=== PATIENT | male | born 1960 | race Caucasian/White ===

== ENCOUNTER 2017-01-27 14:52 | Emergency (ER) | payer BC ==
[2017-01-27 14:59] VITALS: BP 149/74
[2017-01-27] MEDS ORDERED: Tetracaine 0.5% OPTH.SOL 4 ML* 1 DROP BTL LEFT EYE ONE (15:14)
[2017-01-27] MEDS ORDERED: Fluorescein Sodium TOPICAL* 1 MG TEST OPHTHALMIC ONE (15:14)
[2017-01-27] MEDS ORDERED: BSS OPTH.SOL* BTL ONE (15:15)
[2017-01-27] MEDS ORDERED: Fluorescein Sodium TOPICAL* 1 MG TEST ONE (15:15)
[2017-01-27] MEDS ORDERED: Tetracaine 0.5% OPTH.SOL 4 ML* 1 DROP BTL ONE (15:15)
--- NOTE | 2017-01-27 18:59 | UC ---
[facility], scribed for Liya Brannon MD on 01/27/17 at 1528 . Eye Complaint HPI - HPI Summary HPI Summary: 56 y/o male presents to the Urgent Care with a complaint of acute, constant, moderate eye irritation with associated redness in the lower left corner of the left eye. Just 3 hours ago while at work, he walked through a kels[place] of saw dust and got some dust in his eye. His pain is aggravated by sunlight and blinking. 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 His last tetanus shot was roughly 1 year ago. - History of Current Complaint Chief Complaint: UCEye Stated Complaint: SAWDUST IN EYE Time Seen by Provider: 01/27/17 15:03 Hx Obtained From: Patient Onset/Duration: Sudden Onset, Lasting Hours, Still Present Timing: Constant Severity Initially: Moderate Severity Currently: Moderate Location of Injury: Conjunctiva, Other - left lower side of conjunctiva on left eye Character: Foreign Body Sensation Aggravating Factor(s): Other - unknown Alleviating Factor(s): Other Associated Signs And Symptoms: Negative: Negative - photophobia, pain when blinking Related History: Other - unknown - Risk Factors Penetrating Injury Risk Factor: Negative Globe Rupture Risk Factors: Negative - Allergies/Home Medications Allergies/Adverse Reactions: Allergies Allergy/AdvReac Type Severity Reaction Status Date / Time No Known Allergies Allergy Verified 02/09/14 18:14 PMH/Surg Hx/FS Hx/Imm Hx Endocrine History: Diabetes - Surgical History Surgical History: None - Family History Known Family History: Positive: Diabetes - Social History Occupation: Employed Full-time Lives: With Family Alcohol Use: None Substance Use Type: None Smoking Status (MU): Never Smoked Tobacco Review of Systems Constitutional: Negative Skin: Negative Eyes: Eye Redness, Photophobia, Other - pain at left eye ENT: Negative Respiratory: Negative Cardiovascular: Negative Gastrointestinal: Negative Genitourinary: Negative Motor: Negative Neurovascular: Negative Musculoskeletal: Negative Neurological: Negative Psychological: Negative All Other Systems Reviewed And Are Negative: Yes Physical Exam Triage Information Reviewed: Yes Appearance: Well-Nourished Vital Signs: Initial Vital Signs Temp 98.4 F 01/27/17 14:56 Pulse 87 01/27/17 14:56 Resp 18 01/27/17 14:56 BP 149/74 01/27/17 14:56 Pulse Ox 97 01/27/17 14:56 Vital Signs Reviewed: Yes Eye Exam: Other - It feels like he has a foreign body in his left eye. He has two 4mm abrasions to his left eye. Both eyes watery. Left eye + scleral injection. Mild lid swelling. No redness. ENT Exam: Normal ENT: Positive: Normal ENT inspection Neck exam: Normal Respiratory Exam: Normal, Other - no dyspnea, no tachypnea, normal respiratory rate Cardiovascular Exam: Normal Cardiovascular: Positive: RRR, Brisk Capillary Refill, Other: - good general skin color Abdominal Exam: Normal Bowel Sounds: Positive: Present Musculoskeletal Exam: Normal Musculoskeletal: Positive: Strength Intact Neurological Exam: Normal, Other - nonfocal, grossly intact Eye Complaint Course/Dx - Course Course Of Treatment: 56 y/o male presents with left eye pain with associated redness. His blood pressure reading was 149/74, indicating type mild-to- moderate 1 hypertension. Follow-up with your primary care provider within 4 weeks for blood pressure readings and further evaluation, or at least make sure to check your blood pressure when following up on your diabetes. The patient already has a referral to Dr. Garcia from his primary care provider and therefore does not currently require another referral. Additionally, blood sugar yesterday was in the 100s (mg/dl). Tetracaine 2 gtt to Left eye. Flourescein stain -> two corneal abrasions (at 1:00 and at 04:00), approx 4mm each, irregular shape. No ulcer. No embedded fb. Two small specs (c/w sawdust hx) removed via sterile q-tip, s/p eye flush. Lids flipped -one of the specs was located under upper lid. Tolerated well. Reviewed f/u instructions / coa. - Differential Dx/Diagnosis Provider Diagnoses: Left eye fb. Left eye corneal abrasion x 2 Discharge - Discharge Plan Condition: Stable Disposition: HOME Prescriptions: Ciprofloxacin 0.3% OPTH.FAVIO* [Cipro 0.3% Opth*] 2 drop LEFT EYE Q8H #1 btl Patient Education Materials: Corneal Abrasion (ED), Eye Foreign Body (ED) Referrals: Brenda Diaz MD [Primary Care Provider] - Iron Garcia MD [Medical Doctor] - Additional Instructions: Wear sunglasses until light no longer bothers your eye. Follow up primary care physician, per routine. Follow up eye doctor, as recommended by your primary care physician. Follow up sooner (ie: Monday) if not better by then. Return here if worse over the weekend. The documentation as recorded by the [facility] accurately reflects the service I personally performed and the decisions made by me, Liya Brannon MD.
== END 2017-01-27 15:38 | disposition home or self-care (01) ==
LOC: UCEAST 14:52
DX: T15.02XA Foreign body in cornea, left eye, initial encounter (principal); X58.XXXA Exposure to other specified factors, initial encounter; Y93.9 Activity, unspecified; Y92.89 Other specified places as the place of occurrence of the external cause; Y99.0 Civilian activity done for income or pay; E11.9 Type 2 diabetes mellitus without complications
CPT/HCPCS: 99212; A9270-GY; G0463

== ENCOUNTER 2018-02-24 15:10 | Emergency (ER) | payer BC ==
[2018-02-24 15:47] VITALS: BP 143/76
--- NOTE | 2018-02-24 16:14 | UC ---
Eye Complaint HPI - HPI Summary HPI Summary: 4 DAYS OF LEFT UPPER EYELID EDEMA AND DISCOMFORT. NO VISUAL DISTURBANCE. NO EYE DRAINAGE. NO REDNESS. NO PAIN WITH EOM. NO ALAS OR NAUSEA. NO FEVER OR URI SX. HAS BEEN USING WARM COMPRESSES WITHOUT MUCH RELIED. WAS WORKING IN A [place] ARE[place] RECENTLY. 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 Negative : Photophobia, Drainage (Clear), Vision Impairment Bilateral, Fever - Allergies/Home Medications Allergies/Adverse Reactions: Allergies Allergy/AdvReac Type Severity Reaction Status Date / Time No Known Allergies Allergy Verified 02/24/18 15:47 Home Medications: Home Medications Aspirin 81 mg PO 02/24/18 [History] Atorvastatin* [Lipitor 20 MG*] 20 mg PO 1700 02/24/18 [History Confirmed ] Losartan TAB* [Cozaar TAB*] 25 mg PO DAILY 02/24/18 [History Confirmed 02/24/18] Metoprolol Tartrate TAB* [Lopressor TAB*] 25 mg PO DAILY 02/24/18 [History Confirmed 02/24/18] Sitagliptin Phos/Metformin HCl [Janumet 50-1,000 mg Tablet] 1 tab PO DAILY 02/24 [History Confirmed 02/24/18] PMH/Surg Hx/FS Hx/Imm Hx Endocrine History: Diabetes - Surgical History Surgical History: Yes Surgery Procedure, Year, and Place: hernia x2 - Family History Known Family History: Positive: Diabetes Negative: Hypertension - Social History Alcohol Use: Rare Substance Use Type: None Smoking Status (MU): Former Smoker Review of Systems Constitutional: Negative Eyes: Other - LEFT UPPER EYELID SWELLING Respiratory: Negative Cardiovascular: Negative Gastrointestinal: Negative All Other Systems Reviewed And Are Negative: Yes Physical Exam Triage Information Reviewed: Yes Appearance: Well-Appearing, No Pain Distress, Well-Nourished Vital Signs: Initial Vital Signs Temp 98.3 F 02/24/18 15:42 Pulse 109 02/24/18 15:42 Resp 16 02/24/18 15:42 BP 143/76 02/24/18 15:42 Pulse Ox 95 02/24/18 15:42 Vital Signs Reviewed: Yes Eyes: Positive: Conjunctiva Clear, Other: - LEFT UPPER EYELID EDEMA AND ERYTHEMA. Negative: Discharge ENT: Positive: Hearing grossly normal Neck: Positive: Supple Respiratory: Positive: No respiratory distress, No accessory muscle use Cardiovascular: Positive: Pulses Normal Abdomen Description: Positive: Soft Musculoskeletal: Positive: No Edema Neurological: Positive: Alert Psychological: Positive: Age Appropriate Behavior Skin: Negative: rashes Eye Complaint Course/Dx - Differential Dx/Diagnosis Provider Diagnoses: BLEPHARITIS LEFT UPPER EYELID Discharge - Sign-Out/Discharge Documenting (check all that apply): Discharge/Admit/Transfer - Discharge Plan Condition: Stable Disposition: HOME Prescriptions: Erythromycin OPTH OINT* [Erythromycin 0.5% OPTH OINT*] 1 applic LEFT EYE QID #1 tube Patient Education Materials: Blepharitis (ED) Referrals: Brenda Diaz MD [Primary Care Provider] - If Needed Iron Garcia MD [Medical Doctor] - If Needed Additional Instructions: BLEPHARITIS What is blepharitis? Blepharitis is inflammation of the eyelids that causes redness and swelling of the lids. The symptoms might get better and then come back. But blepharitis rarely causes problems with your vision. Blepharitis is more common in people who have certain skin conditions, including : Rosacea - This causes redness and raised, red bumps on the cheeks, nose, chin, forehead, or eyelids. Seborrhea This causes redness, scaly patches, and itching, mostly on the scalp. Dandruff is a mild form of seborrhea. What are the symptoms of blepharitis? The symptoms include: Eyelids that are red, swollen, and itchy A gritty or burning feeling in the eyes Red eyes Crusty, matted eyelashes in the morning Flaking or scaling of the eyelid skin Is there a test for blepharitis? No. There is no test. But your doctor or nurse should be able to tell if you have it by learning about your symptoms and doing an exam. Is there anything I can do on my own to feel better? Yes. You can: Put warm, wet pressure on your eyes Wet a clean wash cloth with warm (not scalding hot) water and put it over your eyes. When the wash cloth cools, reheat it with warm water and put it back over your eyes. Repeat these steps for 5 minutes, 2 to 4 times a day. Gently rub your eyelids Do this right after putting warm, wet pressure on your eyes (see above). Use the washcloth or a clean fingertip to gently rub your eyelid in small circles. Wash your eyelids Use plain warm water or warm water with a drop of baby shampoo on a clean washcloth, gauze pad, or cotton swab. Gently clean any crusty material off the eyelashes and eyelids. Do not rub hard or you can cause more irritation. You can also use [id number] eyelid scrubs and pads. How is blepharitis treated? If the treatments you do on your own do not help, your doctor might prescribe: An antibiotic cream or ointment to put on your eyelids Antibiotic pills IF YOU ARE NOT IMPROVING FOLLOW-UP WITH AN POULTRY FIELD SERVICE TECHNICIAN. - Billing Disposition and Condition Condition: STABLE Disposition: Home
== END 2018-02-24 16:09 | disposition home or self-care (01) ==
LOC: UCEAST 15:10
DX: H01.004 Unspecified blepharitis left upper eyelid (principal); E11.9 Type 2 diabetes mellitus without complications; Z87.891 Personal history of nicotine dependence
CPT/HCPCS: 99212; G0463

== ENCOUNTER 2019-03-03 13:56 | Emergency (ER) | payer BC ==
[2019-03-03 14:09] VITALS: BP 138/82
[2019-03-03] MEDS ORDERED: Rabies Immune Globulin/PF 1ML* 1 ML/300 UNITS VIAL IM ONE (14:47)
[2019-03-03] MEDS ORDERED: Rabies VIRUS VACCINE (RabAvert)* 2.5 UNITS VIAL IM ONE (14:48)
--- NOTE | 2019-03-03 14:49 | UC ---
Bite Injury/Animal HPI - HPI Summary HPI Summary: 2 JANINA AGO PT SAW A BAT IN HIS TOOL BAG. PICKED IT UP BY THE WING AND TOSSED IT OUT. NO BITE. IS HERE FOR RABIES PEP. PT REPORTS HE IS UP TO DATE TETANUS. - History of Current Complaint Chief Complaint: UCBiteInjury Stated Complaint: BAT EXPOSURE Time Seen by Provider: 03/03/19 14:45 Hx Obtained From: Patient Severity Currently: None Pain Intensity: 0 Pain Scale Used: 0-10 Numeric Has Animal Been Immunized?: No Aggravating Factor(s): Nothing Alleviating Factor(s): Nothing Associated Signs And Symptoms: Positive: Negative - Allergies/Home Medications Allergies/Adverse Reactions: Allergies Allergy/AdvReac Type Severity Reaction Status Date / Time No Known Allergies Allergy Verified 03/03/19 14:03 Home Medications: Home Medications Dulaglutide [Trulicity] 1 applic SUBCUT WEEKLY 03/03/19 [History Confirmed 03/03] PMH/Surg Hx/FS Hx/Imm Hx Endocrine History: Diabetes - Surgical History Surgical History: Yes Surgery Procedure, Year, and Place: hernia x2 - Family History Known Family History: Positive: Diabetes Negative: Hypertension - Social History Alcohol Use: Rare Substance Use Type: None Smoking Status (MU): Former Smoker Review of Systems All Other Systems Reviewed And Are Negative: Yes Constitutional: Positive: Negative Skin: Positive: Negative Respiratory: Positive: Negative Cardiovascular: Positive: Negative Gastrointestinal: Positive: Negative Physical Exam Triage Information Reviewed: Yes Appearance: Well-Appearing, No Pain Distress, Well-Nourished Vital Signs: Initial Vital Signs Temp 97.9 F 03/03/19 14:05 Pulse 96 03/03/19 14:05 Resp 20 03/03/19 14:05 BP 138/82 03/03/19 14:05 Pulse Ox 96 03/03/19 14:05 Vital Signs Reviewed: Yes Eyes: Positive: Conjunctiva Clear ENT: Positive: Hearing grossly normal Neck: Positive: Supple Respiratory: Positive: No respiratory distress, No accessory muscle use Cardiovascular: Positive: Pulses Normal Abdomen Description: Positive: Soft Musculoskeletal: Positive: No Edema Neurological: Positive: Alert Psychological: Positive: Age Appropriate Behavior Skin: Negative: Rashes Bite Injury Course/Dx - Course Course Of Treatment: RIG AND 1ST DOSE OF RABIES VACCINE ADMINISTERED TODAY. PT WILL FOLLOW-UP FOR HIS NEXT VACCINE IN 3 DAYS. - Differential Dx/Diagnosis Provider Diagnosis: Rabies, need for prophylactic vaccination against Discharge - Sign-Out/Discharge Documenting (check all that apply): Patient Departure All imaging exams completed and their final reports reviewed: No Studies - Discharge Plan Condition: Stable Disposition: HOME Patient Education Materials: Rabies (ED), Rabies Vaccine (ED) Referrals: Brenda Diaz MD [Primary Care Provider] - If Needed Additional Instructions: Rabies Exposure You may have been exposed to the rabies virus. This is a serious problem. To prevent rabies, treatment must begin early. If we wait until you develop symptoms of rabies, it's too late. Rabies is a deadly infection. The rabies virus is found in an infected animal's saliva. After a bite, it grows in the muscle, then travels up the nerves into the brain. Using a series of shots, we can keep the virus from growing in your body. We clean the wound thoroughly. We usually inject rabies immune globulin ( antibodies against rabies) into the wound area. Another shot of immune globulin is given to treat the entire body. You'll need immunization against rabies. (If you're already immunized against rabies, you may need only a booster shot.) After the first shot, there are booster shots over the two weeks following exposure. These are usually done on day 3, 7, and 14. The repeat doses can also be given through the Health Department or by special arrangement with your doctor. The vaccine is 100% effective if started within 10 days, and also is highly effective if started beyond the 10 day recommendation. Because the incubation period for rabies is very long, up to one year, don't assume that you are safe if 10 days have already elapsed since your exposure. Bats are a special case, because they can carry rabies without becoming ill. Their mouths are so small that they can bite a sleeping person without the person being aware of the bite. That's why the health department may recommend rabies shots for a person who wakes up to discover a bat in the room. Ibuprofen or acetaminophen can be used for aching and swelling at the injection site. Call the doctor or return if you develop increasing pain, fever , chills, or spreading redness, or if you become short of breath or faint. - Billing Disposition and Condition Condition: STABLE Disposition: Home
== END 2019-03-03 15:20 | disposition home or self-care (01) ==
LOC: EDSEX 13:56 → UCEAST 13:56
DX: Z29.14 Encounter for prophylactic rabies immune globulin (principal); E11.9 Type 2 diabetes mellitus without complications
CPT/HCPCS: 90375; 90471; 90675; 96372; 99211; G0463

== ENCOUNTER 2019-03-06 14:22 | Emergency (ER) | payer BC ==
[2019-03-06 14:36] VITALS: BP 105/74
--- NOTE | 2019-03-06 14:47 | UC ---
General HPI - HPI Summary HPI Summary: PT presents for DAy #3 Rabies exposure. Exposed to bat - no bite no difficulty, pain or reaction to first vaccine pt without concerns meds reviewed - History of Current Complaint Chief Complaint: UCGeneralIllness Stated Complaint: RABIES Time Seen by Provider: 03/06/19 14:45 Hx Obtained From: Patient, Medical Records Pain Intensity: 0 - Allergy/Home Medications Allergies/Adverse Reactions: Allergies Allergy/AdvReac Type Severity Reaction Status Date / Time No Known Allergies Allergy Verified 03/06/19 14:36 PMH/Surg Hx/FS Hx/Imm Hx Previously Healthy: Yes - Surgical History Surgical History: Yes Surgery Procedure, Year, and Place: hernia x2 - Family History Known Family History: Positive: Diabetes Negative: Hypertension - Social History Occupation: Employed Full-time Lives: With Family Alcohol Use: Rare Substance Use Type: None Smoking Status (MU): Former Smoker Review of Systems All Other Systems Reviewed And Are Negative: Yes Constitutional: Positive: Negative Skin: Positive: Negative Eyes: Positive: Negative ENT: Positive: Negative Respiratory: Positive: Negative Cardiovascular: Positive: Negative Physical Exam - Summary Physical Exam Summary: Vital Signs Reviewed: Yes A+Ox3, no distress Eyes: Conjunctiva Clear ENT: Hearing grossly normal neck: supple Respiratory: Positive: No respiratory distress, No accessory muscle use Cardiovascular: skin color reflect adequate perfusion Musculoskeletal Exam: [place] x 4 without difficulty Neurological: Positive: Alert, ambulatory without difficulty Psychological: Positive: Normal Response To proivder Skin: Positive: no rash, no ecchymosis Triage Information Reviewed: Yes Vital Signs: Initial Vital Signs Temp 98.2 F 03/06/19 14:34 Pulse 103 03/06/19 14:34 Resp 18 03/06/19 14:34 BP 105/74 03/06/19 14:34 Pulse Ox 98 03/06/19 14:34 Course/Dx - Course Course Of Treatment: Pt here for rabies #2 vaccine no concerns or complications related to first okay for vaccine return on Monday - Diagnoses Provider Diagnosis: Rabies, need for prophylactic vaccination against Discharge - Sign-Out/Discharge Documenting (check all that apply): Patient Departure All imaging exams completed and their final reports reviewed: No Studies - Discharge Plan Condition: Stable Disposition: HOME Patient Education Materials: Rabies Vaccine (By injection) Referrals: Brenda Diaz MD [Primary Care Provider] - Additional Instructions: Return on Day #7 7/21/19 for your next vaccination Okay to take tylenol if discomfort at the site of injection - Billing Disposition and Condition Condition: STABLE Disposition: Home
[2019-03-06] MEDS ORDERED: Rabies VIRUS VACCINE (RabAvert)* 2.5 UNITS VIAL IM ONE (14:48)
== END 2019-03-06 15:00 | disposition home or self-care (01) ==
LOC: UCEAST 14:22
DX: Z29.14 Encounter for prophylactic rabies immune globulin (principal); Z87.891 Personal history of nicotine dependence
CPT/HCPCS: 90471; 90675; 99211; G0463

== ENCOUNTER 2019-03-10 07:25 | Emergency (ER) | payer BC ==
[2019-03-10] MEDS ORDERED: Rabies VIRUS VACCINE (RabAvert)* 2.5 UNITS VIAL IM ONE (07:31)
[2019-03-10 07:45] VITALS: BP 134/85
--- NOTE | 2019-03-10 07:50 | UC ---
General HPI - HPI Summary HPI Summary: Patient is here for the seventh day vaccine. Patient had no difficulties with the patient is vaccine. He has no other complaints. - History of Current Complaint Chief Complaint: UCBiteInjury Stated Complaint: RABIES Time Seen by Provider: 03/10/19 07:31 Hx Obtained From: Patient Pain Intensity: 0 - Allergy/Home Medications Allergies/Adverse Reactions: Allergies Allergy/AdvReac Type Severity Reaction Status Date / Time No Known Allergies Allergy Verified 03/10/19 07:45 PMH/Surg Hx/FS Hx/Imm Hx Previously Healthy: Yes - Surgical History Surgical History: Yes Surgery Procedure, Year, and Place: hernia x2 - Family History Known Family History: Positive: Diabetes Negative: Hypertension - Social History Alcohol Use: Rare Substance Use Type: None Smoking Status (MU): Former Smoker Review of Systems All Other Systems Reviewed And Are Negative: Yes Constitutional: Positive: Negative Skin: Positive: Negative Eyes: Positive: Negative ENT: Positive: Negative Respiratory: Positive: Negative Cardiovascular: Positive: Negative Gastrointestinal: Positive: Negative Genitourinary: Positive: Negative Motor: Positive: Negative Neurovascular: Positive: Negative Musculoskeletal: Positive: Negative Neurological: Positive: Negative Is Patient Immunocompromised?: No Physical Exam - Summary Physical Exam Summary: VITAL SIGNS: Reviewed. GENERAL: Patient is a well developed and nourished patient who is lying comfortably in the stretcher. Patient is not in any acute respiratory distress. HEAD AND FACE: No signs of trauma. No ecchymosis, hematomas or skull depressions. No sinus tenderness. EYES: PERRLA, EOMI x 2, No injected conjunctiva, no nystagmus. EARS: Hearing grossly intact. Ear canals and tympanic membranes are within normal limits. MOUTH: Oropharynx within normal limits. NECK: Supple, trachea is midline, no adenopathy, no JVD, no carotid bruit, no c- spine tenderness, neck with full ROM. CHEST: Symmetric, no tenderness at palpation LUNGS: Clear to auscultation bilaterally. No wheezing or crackles. CVS: Regular rate and rhythm, S1 and S2 present, no murmurs or gallops appreciated. ABDOMEN: Soft, non-tender. No signs of distention. No rebound no guarding, and no masses palpated. Bowel sounds are normal. EXTREMITIES: FROM in all major joints, no edema, no cyanosis or clubbing. NEURO: Alert and oriented x 3. No acute neurological deficits. Speech is normal and follows commands. SKIN: Dry and warm Triage Information Reviewed: Yes Appearance: Well-Appearing Vital Signs: Initial Vital Signs Temp 98.3 F 03/10/19 07:41 Pulse 86 03/10/19 07:41 Resp 18 03/10/19 07:41 BP 134/85 03/10/19 07:41 Pulse Ox 95 03/10/19 07:41 Vital Signs Reviewed: Yes Course/Dx - Course Course Of Treatment: Patient received the vaccine without any complications. Patient will follow-up with the primary care physician as needed. - Diagnoses Provider Diagnosis: Rabies, need for prophylactic vaccination against Discharge - Sign-Out/Discharge Documenting (check all that apply): Patient Departure All imaging exams completed and their final reports reviewed: No Studies - Discharge Plan Condition: Stable Disposition: HOME Patient Education Materials: Rabies Vaccine (By injection) Referrals: Brenda Diaz MD [Primary Care Provider] - Additional Instructions: Follow-up with PCP as needed. - Billing Disposition and Condition Condition: STABLE Disposition: Home
== END 2019-03-10 08:07 | disposition home or self-care (01) ==
LOC: UCEAST 07:25
DX: Z29.14 Encounter for prophylactic rabies immune globulin (principal); Z87.891 Personal history of nicotine dependence
CPT/HCPCS: 90471; 90675; 99211; G0463

== ENCOUNTER 2019-03-17 07:13 | Emergency (ER) | payer BC ==
[2019-03-17 07:30] VITALS: BP 139/77
[2019-03-17] MEDS ORDERED: Rabies VIRUS VACCINE (RabAvert)* 2.5 UNITS VIAL IM ONE (07:36)
--- NOTE | 2019-03-17 07:42 | UC ---
UC General HPI - HPI Summary HPI Summary: Pt is here for #4th day rabies vaccine. No problems thus far. No fever / chills. No n/v/d. No sob / cp / palpitations. No rash. No abd pain. - History of Current Complaint Chief Complaint: UCBiteInjury Stated Complaint: BAT EXPOSURE Time Seen by Provider: 03/17/19 07:20 Hx Obtained From: Patient Pain Intensity: 0 - Allergy/Home Medications Allergies/Adverse Reactions: Allergies Allergy/AdvReac Type Severity Reaction Status Date / Time No Known Allergies Allergy Verified 03/10/19 07:45 PMH/Surg Hx/FS Hx/Imm Hx Previously Healthy: Yes - see prior ucc / ed notes - Surgical History Surgical History: Yes Surgery Procedure, Year, and Place: hernia x2 - Family History Known Family History: Positive: Diabetes Negative: Hypertension - Social History Alcohol Use: Rare Substance Use Type: None Smoking Status (MU): Former Smoker Review of Systems All Other Systems Reviewed And Are Negative: Yes Constitutional: Positive: Negative Skin: Positive: Negative Eyes: Positive: Negative ENT: Positive: Negative Respiratory: Positive: Negative Cardiovascular: Positive: Negative Gastrointestinal: Positive: Negative Genitourinary: Positive: Negative Motor: Positive: Negative Neurovascular: Positive: Negative Musculoskeletal: Positive: Negative Neurological: Positive: Negative Psychological: Positive: Negative Is Patient Immunocompromised?: No Physical Exam Triage Information Reviewed: Yes Appearance: Well-Appearing, Well-Nourished Vital Signs: Initial Vital Signs Temp 98 F 03/17/19 07:22 Pulse 98 03/17/19 07:22 Resp 16 03/17/19 07:22 BP 139/77 03/17/19 07:22 Pulse Ox 98 03/17/19 07:22 Vital Signs Reviewed: Yes Eye Exam: Normal - grossly normal ENT Exam: Normal - mmm nad Neck exam: Normal Neck: Positive: Supple Respiratory Exam: Normal Cardiovascular Exam: Normal Musculoskeletal Exam: Normal Neurological Exam: Normal - nonfocal Psychological Exam: Normal - conversing easily and appropriately Skin Exam: Normal - no visible or reported rash Course/Dx - Course Course Of Treatment: Rabavert administered by RN. No new issues here in [facility]. No new issues in general. Mr. Fish was given the opportunity to ask questions. F/u [facility] Dept. F/u PCP as needed. - Diagnoses Provider Diagnosis: Need for rabies vaccination Discharge - Sign-Out/Discharge Documenting (check all that apply): Patient Departure All imaging exams completed and their final reports reviewed: No Studies - Discharge Plan Condition: Stable Disposition: HOME Patient Education Materials: Rabies Vaccine (By injection) Referrals: Brenda Diaz MD [Primary Care Provider] - - Billing Disposition and Condition Condition: STABLE Disposition: Home
== END 2019-03-17 08:11 | disposition home or self-care (01) ==
LOC: UCEAST 07:13
DX: Z29.14 Encounter for prophylactic rabies immune globulin (principal); Z87.891 Personal history of nicotine dependence
CPT/HCPCS: 90471; 90675; 99211; G0463

== ENCOUNTER 2022-09-16 21:24 | Inpatient (IN) ==
[2022-09-16 22:13] LABS: ABS Eosinophils 0.1 10^3/ul (0-0.6); ABS Lymphocytes 1.5 10^3/ul (1.0-4.8); ABS Monocytes 0.8 10^3/ul (0-0.8); ABS Neutrophils 5.3 10^3/ul (1.5-7.7); Eosinophil % 0.7 %; Hematocrit 43 % (42-52); Hemoglobin 13.8 g/dL (14.0-18.0); Lymphocyte % 19.4 %; Mean Corpuscular HGB Conc 32 g/dL (31-36); Mean Corpuscular Hemoglobin 27 pg (27-31); Mean Corpuscular Volume 84 fL (80-94); Mean Platelet Volume 7.4 fL (7.4-10.4); Platelet Count 328 10^3/uL (150-450); Red Blood Count 5.17 10^6 /uL (4.18-5.48); Red Cell Distribution Width 15 % (10-15); White Blood Count 7.6 10^3/uL (3.5-10.8)
[2022-09-16] MEDS ORDERED: Lactated Ringers 1000 ml BAG 1,000 ML IV ONE (22:21)
[2022-09-16 22:27] LABS: Activated Partial Thrombo Time 30.5 seconds (26.0-38.0); INR 1.09 (0.88-1.18)
[2022-09-16 22:47] LABS: High Sens Troponin Baseline 9 pg/mL (<20)
[2022-09-16 22:56] LABS: ALT 6 U/L (7-52); AST 7 U/L (13-39); Albumin/Globulin Ratio 1.4 (1-3); Alkaline Phosphatase 80 U/L (35-149); Blood Urea Nitrogen 13 mg/dL (6-24); C Reactive Protein 134.94 mg/L (<8.01); Calcium 8.9 mg/dL (8.6-10.3); Chloride 100 mmol/L (101-111); Creatinine, Serum 0.99 mg/dL (0.67-1.17); Globulin 2.9 g/dL (2-4); Glucose 168 mg/dL (70-100); Lipase < 10 U/L (11.0-82.0); Potassium 4.8 mmol/L (3.5-5.0); Sodium 133 mmol/L (135-145); Total Protein 6.9 g/dL (6.4-8.9); eGFR CKD-EPI 86.7 (>60)
[2022-09-16 23:02] LABS: Anion Gap 22 mmol/L (2-11); CO2 Carbon Dioxide 11 mmol/L (22-32)
[2022-09-16 23:33] LABS: High Sensitivity Troponin 1 Hr 6 pg/mL (<20)
[2022-09-17 00:19] LABS: Urine Appearance Clear; Urine Bilirubin Negative (Negative); Urine Blood 1+ (Negative); Urine Color Straw; Urine Glucose 3+(>=500 mg/dL) (Negative); Urine Ketones 2+ (Negative); Urine Nitrite Negative (Negative); Urine Protein 1+(30 mg/dL) (Negative); Urine Specific Gravity 1.024 (1.002-1.030); Urine Urobilinogen Negative (Negative)
[2022-09-17 00:26] LABS: Urine Bacteria Absent (Absent); Urine Red Blood Cell Trace(0-2/hpf) (Absent); Urine White Blood Cell Trace(0-5/hpf) (Absent)
[2022-09-17] MEDS ORDERED: Lactated Ringers 1000 ml BAG 1,000 ML IV ONE ×2 (02:48→06:09)
[2022-09-17 05:55] LABS: Creatinine, Serum 0.51 mg/dL (0.67-1.17); Potassium 3.3 mmol/L (3.5-5.0); eGFR CKD-EPI 115.4 (>60)
[2022-09-17 06:04] LABS: Calcium 5.3 mg/dL (8.6-10.3)
[2022-09-17] MEDS ORDERED: Ondansetron 4 mg VIAL 2 MG/ML 2 ml VIAL IV ONE (06:11)
[2022-09-17 07:48] LABS: PCO2 Arterial 23 mmHg (35-45); PO2 Arterial 102 mmHg (80-100)
[2022-09-17] MEDS: KCL 20 MEQ/100 ML IVPREMIX 20 MEQ/100 ML BAG IV SCH ×2 (09:15→09:51)
[2022-09-17 09:16] LABS: Albumin 3.5 g/dL (3.2-5.2); Albumin/Globulin Ratio 1.5 (1-3); Calcium 8.4 mg/dL (8.6-10.3); Creatinine, Serum 0.95 mg/dL (0.67-1.17); Globulin 2.4 g/dL (2-4); Potassium 4.8 mmol/L (3.5-5.0); Total Bilirubin 0.4 mg/dL (0.2-1.0); Total Protein 5.9 g/dL (6.4-8.9); eGFR CKD-EPI 91.1 (>60)
[2022-09-17 10:27] LABS: Vitamin D Total 25(OH) 9.9 ng/mL (20-50)
[2022-09-17] MEDS: D5W 1/2 NS 1000 ml BAG 1,000 ML IV SCH ×2 (13:15→20:43)
[2022-09-17] MEDS: Enoxaparin 40 MG/0.4 ML SYR SUBCUT SCH (13:36)
[2022-09-17 14:19] LABS: Calcium 8.5 mg/dL (8.6-10.3); Creatinine, Serum 1.01 mg/dL (0.67-1.17); Potassium 4.9 mmol/L (3.5-5.0); eGFR CKD-EPI 84.6 (>60)
[2022-09-17 16:40] LABS: Calcium 8.7 mg/dL (8.6-10.3); Creatinine, Serum 0.92 mg/dL (0.67-1.17); Potassium 4.7 mmol/L (3.5-5.0); eGFR CKD-EPI 94.6 (>60)
[2022-09-17] MEDS: Ondansetron 4 mg VIAL 2 MG/ML 2 ml VIAL IV PRN (18:02)
[2022-09-17 18:14] LABS: Calcium 8.7 mg/dL (8.6-10.3); Creatinine, Serum 0.96 mg/dL (0.67-1.17); Potassium 4.6 mmol/L (3.5-5.0); eGFR CKD-EPI 89.9 (>60)
[2022-09-17 22:01] LABS: Calcium 8.4 mg/dL (8.6-10.3); Creatinine, Serum 0.95 mg/dL (0.67-1.17); Potassium 4.6 mmol/L (3.5-5.0); eGFR CKD-EPI 91.1 (>60)
[2022-09-17 23:05] LABS: Magnesium 1.9 mg/dL (1.9-2.7)
[2022-09-17] MEDS ORDERED: Magnesium Sulfate IV 1GM/100ML 1 GM/100 ML BAG IV ONE (23:23)
[2022-09-18 01:48] LABS: Calcium 8.3 mg/dL (8.6-10.3); Creatinine, Serum 0.9 mg/dL (0.67-1.17); Potassium 4.4 mmol/L (3.5-5.0); eGFR CKD-EPI 97.2 (>60)
[2022-09-18] MEDS: D5W 1/2 NS 1000 ml BAG 1,000 ML IV SCH ×2 (04:42→13:51)
[2022-09-18 05:25] LABS: ABS Eosinophils 0.1 10^3/ul (0-0.6); ABS Lymphocytes 0.9 10^3/ul (1.0-4.8); ABS Monocytes 0.8 10^3/ul (0-0.8); ABS Neutrophils 5.5 10^3/ul (1.5-7.7); Hematocrit 41 % (42-52); Hemoglobin 13.2 g/dL (14.0-18.0); Lymphocyte % 11.9 %; Mean Corpuscular HGB Conc 33 g/dL (31-36); Mean Corpuscular Hemoglobin 27 pg (27-31); Mean Corpuscular Volume 82 fL (80-94); Mean Platelet Volume 7.4 fL (7.4-10.4); Platelet Count 303 10^3/uL (150-450); Red Blood Count 4.96 10^6 /uL (4.18-5.48); Red Cell Distribution Width 15 % (10-15); White Blood Count 7.3 10^3/uL (3.5-10.8)
[2022-09-18 05:52] LABS: Calcium 8.2 mg/dL (8.6-10.3); Creatinine, Serum 0.87 mg/dL (0.67-1.17); Potassium 4.6 mmol/L (3.5-5.0); eGFR CKD-EPI 98.2 (>60)
[2022-09-18] MEDS ORDERED: Iodixanol (CONTRAST) 320 MG/ML 100 ML SDV IV ONE (06:37)
[2022-09-18] MEDS ORDERED: Dextrose 50% Syringe 50 ml 25 GM/50 ML SYRINGE IV PUSH PRN ×2 (07:53→21:22)
[2022-09-18] MEDS ORDERED: Insulin Infusion 100unit/100mL 100 UNIT/100 ML BAG IV SCH (08:30)
[2022-09-18] MEDS: Ondansetron 4 mg VIAL 2 MG/ML 2 ml VIAL IV PRN ×2 (08:34→13:10)
[2022-09-18 10:45] LABS: Calcium 8.2 mg/dL (8.6-10.3); Creatinine, Serum 0.8 mg/dL (0.67-1.17); Potassium 4.4 mmol/L (3.5-5.0); eGFR CKD-EPI 100.7 (>60)
[2022-09-18] MEDS: Enoxaparin 40 MG/0.4 ML SYR SUBCUT SCH (13:07)
[2022-09-18] MEDS ORDERED: Morphine 2 MG/ML SYRINGE IV PRN (14:16)
[2022-09-18] MEDS ORDERED: D5W 1/2 NS 1000 ml BAG 1,000 ML IV SCH (14:25)
[2022-09-18 16:14] LABS: Calcium 8.6 mg/dL (8.6-10.3); Creatinine, Serum 0.84 mg/dL (0.67-1.17); Potassium 3.6 mmol/L (3.5-5.0); eGFR CKD-EPI 99.2 (>60)
[2022-09-18] MEDS: Sodium Chloride CONC. 4 MEQ/ML 77 MEQ in D10W 1000 ml BAG 1,000 ML IV SCH (16:15)
[2022-09-18] MEDS ORDERED: Potassium Chlor 20 meq TAB.ER PO ONE (16:34)
[2022-09-18] MEDS ORDERED: KCL 20 MEQ/100 ML IVPREMIX 20 MEQ/100 ML BAG IV ONE (17:05)
[2022-09-18] MEDS ORDERED: Metoprolol Tartrate 5 mg VIAL 5 ml VIAL (1 mg/ml) IV PRN (17:05)
[2022-09-18 20:02] LABS: Calcium 8.4 mg/dL (8.6-10.3); Creatinine, Serum 0.74 mg/dL (0.67-1.17); Potassium 3.8 mmol/L (3.5-5.0); eGFR CKD-EPI 103.1 (>60)
[2022-09-18 23:54] LABS: Calcium 8.1 mg/dL (8.6-10.3); Creatinine, Serum 0.73 mg/dL (0.67-1.17); Potassium 3.5 mmol/L (3.5-5.0); eGFR CKD-EPI 103.5 (>60)
[2022-09-19] MEDS ORDERED: Potassium Chlor 20 meq TAB.ER PO ONE (00:19)
[2022-09-19 03:15] LABS: Calcium 8.1 mg/dL (8.6-10.3); Creatinine, Serum 0.73 mg/dL (0.67-1.17); Potassium 3.9 mmol/L (3.5-5.0); eGFR CKD-EPI 103.5 (>60)
[2022-09-19] MEDS: Sodium Chloride CONC. 4 MEQ/ML 77 MEQ in D10W 1000 ml BAG 1,000 ML IV SCH (04:08)
[2022-09-19 06:21] LABS: Hematocrit 39 % (42-52); Hemoglobin 12.8 g/dL (14.0-18.0); Mean Corpuscular HGB Conc 33 g/dL (31-36); Mean Corpuscular Hemoglobin 27 pg (27-31); Mean Corpuscular Volume 81 fL (80-94); Mean Platelet Volume 7.1 fL (7.4-10.4); Platelet Count 267 10^3/uL (150-450); Red Blood Count 4.78 10^6 /uL (4.18-5.48); Red Cell Distribution Width 15 % (10-15); White Blood Count 6.2 10^3/uL (3.5-10.8)
[2022-09-19 07:00] LABS: Calcium 8.1 mg/dL (8.6-10.3); Creatinine, Serum 0.66 mg/dL (0.67-1.17); Potassium 3.6 mmol/L (3.5-5.0); eGFR CKD-EPI 106.7 (>60)
[2022-09-19 11:11] LABS: Phosphorus 1.5 mg/dL (2.5-5.0)
[2022-09-19] MEDS: Enoxaparin 40 MG/0.4 ML SYR SUBCUT SCH (12:27)
[2022-09-19] MEDS: Potassium & Sodium Phos 250 mg = 1 PACKET PO SCH ×3 (12:58→21:18)
[2022-09-19 13:52] LABS: Calcium (PTH Intact) 8.1 mg/dL (8.6-10.3)
[2022-09-20 06:42] LABS: ABS Lymphocytes 1.1 10^3/ul (1.0-4.8); ABS Monocytes 1.1 10^3/ul (0-0.8); ABS Neutrophils 6.5 10^3/ul (1.5-7.7); Eosinophil % 0.4 %; Hematocrit 38 % (42-52); Hemoglobin 12.7 g/dL (14.0-18.0); Lymphocyte % 12.6 %; Mean Corpuscular HGB Conc 33 g/dL (31-36); Mean Corpuscular Hemoglobin 27 pg (27-31); Mean Corpuscular Volume 81 fL (80-94); Mean Platelet Volume 7.4 fL (7.4-10.4); Platelet Count 262 10^3/uL (150-450); Red Blood Count 4.71 10^6 /uL (4.18-5.48); Red Cell Distribution Width 14 % (10-15); White Blood Count 8.8 10^3/uL (3.5-10.8)
[2022-09-20 06:56] LABS: Calcium 8.3 mg/dL (8.6-10.3); Creatinine, Serum 0.66 mg/dL (0.67-1.17); Magnesium 1.7 mg/dL (1.9-2.7); Phosphorus 1.9 mg/dL (2.5-5.0); Potassium 3.7 mmol/L (3.5-5.0); eGFR CKD-EPI 106.7 (>60)
[2022-09-20] MEDS ORDERED: Insulin GLARGINE 100 un/ml 10 ml VIAL SUBCUT SCH (07:39)
[2022-09-20] MEDS ORDERED: Potassium Chlor 20 meq TAB.ER PO ONE ×2 (07:41)
[2022-09-20] MEDS ORDERED: Potassium Phosphate IV 15 MMOL in NS 0.9% 250 ml 250 ML IVPB ONE (07:41)
[2022-09-20] MEDS ORDERED: Magnesium Sulfate IV 3 GM in NS 0.9% 100 ml BAG 100 ML IVPB ONE (07:43)
[2022-09-20] MEDS: Potassium & Sodium Phos 250 mg = 1 PACKET PO SCH ×4 (09:03→21:33)
[2022-09-20] MEDS: Enoxaparin 40 MG/0.4 ML SYR SUBCUT SCH (13:33)
[2022-09-21 05:44] LABS: Creatinine, Serum 0.62 mg/dL (0.67-1.17)
[2022-09-21 05:45] LABS: Calcium 8.1 mg/dL (8.6-10.3); Magnesium 1.9 mg/dL (1.9-2.7); Phosphorus 2.4 mg/dL (2.5-5.0); eGFR CKD-EPI 108.7 (>60)
[2022-09-21] MEDS ORDERED: Dextrose 50% Syringe 50 ml 25 GM/50 ML SYRINGE IV PUSH PRN (08:25)
[2022-09-21] MEDS: Potassium & Sodium Phos 250 mg = 1 PACKET PO SCH (08:47)
[2022-09-21] MEDS ORDERED: Insulin GLARGINE 100 un/ml 10 ml VIAL SUBCUT SCH (09:00)
[2022-09-21 11:11] VITALS: BP 116/57
== END 2022-09-21 11:50 | disposition home or self-care (01) | DRG 420 ==
LOC: ED 21:24 → SUATTDRO 09-17 11:28 → EDHOLD 09-17 11:28 → ICU 09-17 13:08 → MEDTELE 09-19 08:49
PROVIDERS: ADMIT Internal Medicine Critical Care Medicine; ATTEND Student in an Organized Health Care Education/Training Program